=== PATIENT | male | born 1955 | race Caucasian/White ===

== ENCOUNTER 2016-06-29 06:31 | Emergency (ER) | payer MEDICARE ==
[2016-06-29 07:57] LABS: BASOPHIL % 0.6 % (0.0-0.4); Eosinophil % 6.2 % (0.00-5.0); Granulocytes % 57.4 % (36.0-66.0); Lymphocytes % 27.7 % (24.0-44.0); Mean Cell Volume 99.3 fl (78-100); Mean Corpuscular Hemoglobin 31.6 pg (26-32); Monocytes % 8.1 % (0.0-12.0); Platelet Count 110 K/mm3 (150-450); Red Blood Count 4.33 M/mm3 (4.1-5.6); Red Cell Distribution Width 14.6 % (11.5-14.0); White Blood Count 5.2 K/mm3 (4.0-10.5)
--- NOTE | 2016-06-29 07:59 | ERPHSYRPT ---
- History of Present Illness Time Seen by Provider: 06/29/16 07:54 Historian: patient Exam Limitations: no limitations Patient Subjective Stated Complaint: pt has multi cos. he was to get stress test today, and didnt feel like he could get it done, due to sob, abd pain, chest pain that has resolved, pt wears o2 at home.cough which is normal , no fever Triage Nursing Assessment: pt alert, resp easy,skin w/d pink,.watching tv, moves all ext well, pt also states he feels like he has no circulation to hands , because tingling,cold and pale, hands are pink,warm with good cap. refill Physician History: The patient is a 61-year-old male with a past medical history of cardiac pacemaker, hypertension, congestive heart failure, GERD, and high cholesterol, who complains today of chest pain. For the past 1-2 months the patient has been having numerous medical evaluations performed for abdominal and chest pain. Today he is to have another cardiac evaluation. He was scheduled for a nuclear stress test this morning. On the drive in to the hospital he began having very brief episodes of chest pain lasting 5-10 seconds without shortness of breath. He presented to the nuclear medicine department for his stress test and stated he wanted to see a doctor because he had been having some chest pains. He states the pain is sharp lasting only a few seconds. Since he has been in the emergency department, he has experienced no chest pain. He would like to continue with the stress test, if all tests in the emergency department are normal. Timing/Duration: week(s) (several), intermittent, resolved prior to arrival, sudden Activities at Onset: emotional stress Quality: sharpness Location: substernal Chest Pain Radiation: no radiation Severity of Pain-Max: mild Severity of Pain-Current: none Modifying Factors: Improves With: nothing Associated Symptoms: denies symptoms Prior Chest Pain/Cardiac Workup: angina Nitro Today/Relief: no nitro taken today Aspirin Treatment Today: 81 mg x 2 Allergies/Adverse Reactions: cefaclor [From Ceclor] Allergy (Verified 06/29/16 07:11) lorazepam [From Ativan] Allergy (Verified 06/29/16 07:11) Home Medications: Aspirin [Aspir-Low] 81 mg DAILY 06/29/16 [History] Atorvastatin Calcium 20 mg DAILY 06/29/16 [History] Carvedilol 12.5 mg [Coreg 12.5 mg] 12.5 mg BID 06/29/16 [History] Dabigatran Etexilate Mesylate [Pradaxa] 150 mg BID 06/29/16 [History] Dicyclomine HCl 20 mg [Bentyl 20 mg] 20 mg TID 06/29/16 [History] Lisinopril 10 mg [Zestril 10 MG] 10 mg BID 06/29/16 [History] Omeprazole 20 MG [Prilosec 20 mg] 20 mg DAILY 06/29/16 [History] Spironolactone 25 mg [Aldactone 25 MG] 25 mg DAILY 06/29/16 [History] Hx Influenza Vaccination/Date Given: Yes Hx Pneumococcal Vaccination/Date Given: Yes Immunizations Up to Date: Yes - Review of Systems Constitutional: No Fever, No Chills Eyes: No Symptoms Ears, Nose, & Throat: No Symptoms Respiratory: No Cough, No Dyspnea Cardiac: Chest Pain Abdominal/Gastrointestinal: No Abdominal Pain, No Nausea, No Vomiting, No Diarrhea Genitourinary Symptoms: No Dysuria Musculoskeletal: No Back Pain, No Neck Pain Skin: No Rash Neurological: No Dizziness, No Focal Weakness, No Sensory Changes Psychological: No Symptoms Endocrine: No Symptoms Hematologic/Lymphatic: No Symptoms Immunological/Allergic: No Symptoms All Other Systems: Reviewed and Negative - Past Medical History Pertinent Past Medical History: Yes Cardiac History: Coronary Artery Disease, Myocardial Infarction (ID) Respiratory History: CHF, COPD GI Medical History: Hepatitis Other Medical History: hep d, - Past Surgical History Past Surgical History: Yes Cardiac: Cardiac Catheterization, Cardiac Stent, Internal Defibrillator, Pacemaker Gastrointestinal: Cholecystectomy Other Surgical History: pacemaker/def - Social History Smoking Status: Current every day smoker Exposure to second hand smoke: Yes Patient Lives Alone: No - Nursing Vital Signs Temperature Source: Oral Pulse Rate: 62 Respiratory Rate: 16 Pain Intensity: 0 - Physical Exam General Appearance: no apparent distress, alert Eye Exam: PERRL/EOMI, eyes nml inspection Ears, Nose, Throat Exam: normal ENT inspection, moist mucous membranes Neck Exam: normal inspection, non-tender, supple, full range of motion Respiratory Exam: normal breath sounds, lungs clear, No respiratory distress Cardiovascular Exam: regular rate/rhythm, normal heart sounds Gastrointestinal/Abdomen Exam: soft, No tenderness, No mass Rectal Exam: not done Back Exam: normal inspection, No CVA tenderness, No vertebral tenderness Extremity Exam: normal inspection, normal range of motion, No pedal edema Neurologic Exam: alert, oriented x 3, cooperative, normal mood/affect, sensation nml, No motor deficits Skin Exam: normal color, warm, dry SpO2 Interpretation: normal SpO2: 98 Oxygen Delivery: Room Air - Course EKG Interpreted by Me: RATE (paced) - Radiology Exams Chest X-ray Interpretation: Interpreted by me, Negative, Other (cardiomegaly without failure. comp cxr 08/28/09) Ordered Tests: Active Orders 24 hr Category Date Time Status Nurse Chemical Dependency STAT Care 06/29/16 07:35 Active EKG-ER Only STAT Care 06/29/16 07:35 Active IV Insertion STAT Care 06/29/16 07:41 Active CHEST 1 VIEW (PORTABLE) Stat Exams 06/29/16 07:35 Taken CBC W DIFF Stat Lab 06/29/16 07:30 Completed CMP Stat Lab 06/29/16 07:30 Completed TROPONIN Stat Lab 06/29/16 07:30 Completed Lab/Rad Data: Laboratory Result Diagrams 06/29/16 07:30 06/29/16 07:30 Laboratory Results 06/29/16 06/29/16 Range/Units 07:30 07:30 WBC 5.2 (4.0-10.5) K/mm3 RBC 4.33 (4.1-5.6) M/mm3 Hgb 13.7 (12.5-18.0) gm/dl Hct 43.0 (42-50) % MCV 99.3 (78-100) fl MCH 31.6 (26-32) pg MCHC 31.9 L (32-36) g/dl RDW 14.6 H (11.5-14.0) % Plt Count 110 L (150-450) K/mm3 MPV 11.0 H (6-9.5) fl Gran % 57.4 (36.0-66.0) % Lymphocytes % 27.7 (24.0-44.0) % Monocytes % 8.1 (0.0-12.0) % Eosinophils % 6.2 H (0.00-5.0) % Basophils % 0.6 (0.0-0.4) % Basophils # 0.03 (0-0.4) Sodium 140 (136-145) mEq/L Potassium 4.4 (3.5-5.1) mEq/L Chloride 105 (98-107) mEq/L Carbon Dioxide 22.8 (21-32) mEq/L Anion Gap 16.1 H (5-15) MEQ/L BUN 27 H (9-20) mg/dL Creatinine 1.96 H (0.55-1.30) mg/dl Estimated GFR 37 ML/MIN Glucose 104 (70-110) MG/DL Calcium 8.4 L (8.5-10.1) mg/dL Total Bilirubin 0.7 (0.2-1.0) mg/dL AST 25 (15-37) U/L ALT 14 (12-78) U/L Alkaline Phosphatase 56 (46-116) U/L Troponin I 0.025 (0.000-0.056) ng/ml Serum Total Protein 7.7 (6.4-8.2) gm/dL Albumin 3.4 (3.4-5.0) g/dL - Progress Progress: unchanged Air Movement: good Blood Culture(s) Obtained: No Antibiotics given: No Counseled pt/family regarding: lab results, diagnosis, rad results - Departure Time of Disposition: 08:51 Departure Disposition: Home Clinical Impression: Chest pain of unknown etiology Condition: Stable Critical Care Time: No Additional Instructions: You have intermittent chest pain. Your stress test was cancelled today. It has been rescheduled for tomorrow.
[2016-06-29] MEDS ORDERED: LEXISCAN IV ONE (08:00)
[2016-06-29 08:34] LABS: ALBUMIN 3.4 g/dL (3.4-5.0); ANION GAP 16.1 MEQ/L (5-15); BILIRUBIN,TOTAL 0.7 mg/dL (0.2-1.0); Carbon Dioxide 22.8 mEq/L (21-32); Potassium 4.4 mEq/L (3.5-5.1); TROPONIN 0.025 ng/ml (0.000-0.056); Total Protein 7.7 gm/dL (6.4-8.2)
[2016-06-29 09:30] VITALS: BP 124/80; PULSE 61; O2SAT 96
--- NOTE | 2016-06-29 09:30 | XRAY ---
Indication: Short of breath. Comparison: August 28, 2009. Portable chest again demonstrates cardiomegaly with left-sided AICD. Vascularity normal. Lungs inflated and clear. Bony thorax intact. Impression: Stable cardiomegaly. Negative for acute pneumonic process or CHF.
== END 2016-06-29 09:31 | disposition home or self-care (01) ==
LOC: ED 06:31 → EDSTATUS 06:31 → ED 09:31
DX: R07.89 Other chest pain (principal); Z95.0 Presence of cardiac pacemaker; I10 Essential (primary) hypertension; I50.9 Heart failure, unspecified; Z79.899 Other long term (current) drug therapy; Z98.61 Coronary angioplasty status
CPT/HCPCS: 36000; 36415; 71010; 80053; 84484; 85025; 93005; 93041; 99283; J2785